=== PATIENT | female | born 1980 | race Two or more races ===

== ENCOUNTER 2025-01-22 12:37 | Emergency (ER) | payer OTHER ==
[~2025-01-22] VITALS: Ht 152.4 cm; Wt 89.8 kg
[2025-01-22] MEDS ORDERED: METFORMIN HCL500 M3 PO (13:54)
[2025-01-22] MEDS ORDERED: GLIPIZIDE XL2.5 MG PO (13:54)
[2025-01-22 17:23] LABS: BASO % 0.7 % (0.1-1.2); EOS # 0.05 (0.04-0.54); EOS % 0.6 % (0.7-7.0); LYMPH # 2.42 (1.18-3.74); LYMPH % 27.6 % (19.3-53.1); MEAN PLATELET VOLUME 9.60 fl (9.4-12.4); MONO # 0.47 (0.24-0.82); MONO % 5.4 % (4.7-12.5); NEUT # 5.74 (1.56-6.13); NEUT % 65.4 % (34.0-71.1); RED CELL DISTRIBUTION WIDTH 15.2 % (11.6-14.4)
[2025-01-22 18:03] LABS: URINE APPEARANCE Clear; URINE BILIRRUBIN Negative (NEGATIVE); URINE BLOOD Negative; URINE COLOR Dark Yellow; URINE GLUCOSE Negative (NEGATIVE); URINE LEUKOCYTE Negative; URINE NITRATE Positive; URINE PROTEIN Trace (NEGATIVE); URINE UROBILINOGEN 1.0 E.U./dl
[2025-01-22 18:08] LABS: URINE EPITHELIAL CELLS 5.8 uL (0.0-38.8); URINE RBC 5.5 uL (0.0-20.8); URINE WBC 15.3 uL (0.0-23.2)
[2025-01-22 18:12] LABS: BUN CREA RATIO 15.0 (7.0-25.0); CREATININE SERUM 0.6 mg/dL (0.55-1.02); GFR 108.11; GLUCOSE FASTING 122.0 mg/dL (65-100); OSMOLALITY SERUM 283.0 MOSM/KG (275-295)
[2025-01-22 18:18] LABS: URINE BACTERIA > 9821.5 uL (0.0-1933); URINE CAST 0.58 uL (0.0-1.40); URINE KETONE 80 (NEGATIVE)
[2025-01-22 18:20] LABS: COVID-19 AG NEGATIVE (NEGATIVE)
[2025-01-22] MEDS ORDERED: CEFTRIAXONE SODIUM 1,000 MG VIAL IM ONE (19:00)
[2025-01-22] MEDS ORDERED: PEPCID AC20 MG PO (19:08)
[2025-01-22] MEDS ORDERED: VALACYCLOVIR1000 MG PO (19:08)
[2025-01-22] MEDS ORDERED: BACTRIM DS TAB1 EACH PO (19:08)
[2025-01-22] MEDS ORDERED: LIDOCAINE HCL 1% 10ML VIAL ONE (19:23)
[2025-01-22] MEDS ORDERED: CEFTRIAXONE SODIUM 1,000 MG VIAL ONE (19:23)
== END 2025-01-22 19:44 | disposition home or self-care (01) ==
LOC: ER 12:38
PROVIDERS: General Practice
DX: N39.0 Urinary tract infection, site not specified (principal); Z20.822 Contact with and (suspected) exposure to COVID-19; N89.8 Other specified noninflammatory disorders of vagina; E11.9 Type 2 diabetes mellitus without complications; Z79.84 Long term (current) use of oral hypoglycemic drugs